=== PATIENT | female | born 1955 | race Caucasian/White ===

== ENCOUNTER → 2019-11-22 | Outpatient (CLI) | payer BC ==
[~2019-11-22] MED LIST: CELE100C PO; CYCL-259 PO; DIAZ5TAB4 PO; HYDR-3240 PO; LEVO112T4 PO; LEVO137T3 PO; OMEP40CA42 PO; OMNIPAQUE 350 MG/ML, 100ML BOTTLE ONE; ONDA4TAB10 PO; PANT40TA6 PO
== END | disposition home or self-care (01) ==
LOC: CFH 12:18
PROVIDERS: ATTEND Internal Medicine Gastroenterology
DX: K76.89 Other specified diseases of liver (principal); M51.36 Other intervertebral disc degeneration, lumbar region
CPT/HCPCS: 74177; Q9967

== ENCOUNTER → 2020-01-13 | Outpatient (CLI) | payer BC ==
[~2020-01-13] MED LIST changes: -OMNIPAQUE 350 MG/ML, 100ML BOTTLE ONE
== END | disposition home or self-care (01) ==
LOC: CFH 14:27
PROVIDERS: ATTEND Nurse Practitioner
DX: Z12.31 Encounter for screening mammogram for malignant neoplasm of breast (principal)
CPT/HCPCS: 77063; 77067